=== PATIENT | male | born 1950 | race Caucasian/White ===

== ENCOUNTER 2024-11-19 06:57 | Outpatient (REF) | payer MEDICARE, SELFPAY ==
--- OUTSIDE RECORDS SUMMARY | 2024-11-19 07:00 | XMS_ITS | Encounter Summary ---
Author Organization [facility] Address [address] [place] [address] Care Team Providers Care Linux Admin Engineer Name Role Phone Physician, Pcp Unknown Primary Care Provider Alana vailable Encounter Details Date Type Department Care Team (Late st Contact Info) Description 03/14/2024 Lab Requisition [facility] - Main Lab [address] [place] [address] Brady Ramon MD [address] [facility] [address] [place] [phone] Personal history of malignant neoplasm of bladder Social History Tobacco Use Types Packs/Day Years Used Date Smoking Tobacco: Never Assessed Sex and Gender Information Value Date Recorded Sex Assigned at Not on file Legal Sex Male 1:50 PM EST Gender Identity Not on file Sexual Orientation Not on file documented as of this encounter Plan of Treatment Not on file documented as of this encounter Procedures Procedure Name Priority Date/Time Associated Diagnosis Comments AP OUTSIDE CONSULT Routine 03/07/2024 12 :00 AM EST Personal history of malignant neoplasm of bladder documented in this encounter Results * Anatomic pathology outside consult (03/07/2024 12:00 AM EST) Final Diagnosis A. Urine, Cystoscopic, ([id number]): -NEGATIVE FOR HIGH-GRADE UROTHELIAL CARCINOMA. Results of UroVysion fluorescence in situ hybridization (FISH) testing: CEP3: Normal CEP7: Normal CEP17: Normal LSI 9p21: Normal Interpretation: Normal profile Controls stained appropriately. Note: The results are intended as a screening device and should be interpreted in association with other clinical and pathological findings. 03/27/2024 9:21 AM EST [facility] Clinical Information History of bladder neoplasm (malignant) Z85.51 Urine Cytology/FISH (now) 03/27/2024 9:21 AM [facility] Gross Description A. Cystoscopic, ([id number]): Received one ThinPrep slide for cytology and one ThinPrep slide for UroVysion FISH 03/27/2024 9:21 AM [facility] Disclaimer Unless otherwise specified, all tissue is 10% NB formalin fixed and paraffin embedded. Technical pathology services provided by [facility] at [address] [facility] [address] [place] [address] (CLIA #[id number]/Ninfa Tolbert MD, Accounting Policy Consultant) 03/27/2024 9:21 AM [facility] Tissue Cystoscopy / Unknown 03/07/2024 03/14/2024 2:05 PM EST us Brady Ramon MD LAB PATHOLOGY ORDERABLES Final Result [facility] [address] [place] [address], documented in this encounter Visit Diagnoses Diagnosis Personal history of malignant neoplasm of bladder documented in this encounter Care Teams Linux Admin Engineer Relationship Specialty Start Date End Date Physician, Pcp Unknown PCP - General 03/14/24 documented as of this encounter
--- OUTSIDE RECORDS SUMMARY | 2024-11-19 07:00 | XMS_ITS | Clinical Summary ---
Author Organization [facility] Address [address] [facility] [address] [place] [address] Phone Care Team Providers Care Launch Check Out Name Role Phone Rosario Huynh MD Primary Care Provider [phone] Allergies No known active allergies Medications omeprazole (PriLOSEC) [address] capsule Take 20 mg by mouth 1 (one) time each day Do not crush or chew. Active metoprolol tartrate (LOPRESSOR) 50 MG tablet Take 50 mg by mouth in the morning and 50 mg in the evening. Active atorvastatin (LIPITOR) 20 MG tablet Take 20 mg by mouth 1 (one) time each day Active metFORMIN (GLUCOPHAGE) 500 MG tablet Take 500 mg by mouth in the morning and 500 mg in the evening. Take with meals. Active tamsulosin (Flomax) 0.4 MG 24 hr capsule Take 0.4 mg by mouth 1 (one) time each day Active finasteride (PROSCAR) 5 MG tablet Take 5 mg by mouth 1 (one) time each day Do not crush, chew, or split. Active Multiple Vitamin (multivitamin) capsule Take 1 capsule by mouth 1 (one) time each day Active NIFEdipine XL (Procardia XL) 30 MG 24 hr tablet Take 2 tablets (60 mg total) by mouth 1 (one) time each day Do not crush, chew, or split. 60 tablet 11 07/24/2023 Active Xarelto 20 MG tablet 10/12/2023 Active Active Problems Problem Noted Date Diagnosed Date Chronic systolic heart failure 09/30/2024 Gastroesophageal reflux disease 09/30/2024 Hypercoagulability state 09/30/2024 Long-term current use of anticoagulant Obesity 09/30/2024 Obstructive sleep apnea syndrome 09/30/2024 Obstructive sleep apnea syndrome 09/30/2024 Pulmonary hypertension 09/30/2024 Stage 3b chronic kidney disease 09/05/2023 Status post nephrectomy 09/05/2023 Type 2 diabetes mellitus wit h diabetic chronic kidney disease 09/05/2023 Essential (primary) hypertension 07/20/2023 Diabetes mellitus 07/20/2023 Varicose veins of lower extremity 10/13/2020 Shortness of breath 10/13/2020 Atrial fibrillation 10/23/2017 Overview (09/30/2024): diagnosed July 2015 Hyperlipidemia 10/23/2017 Encounters Date Type Department Care Team Description 09/30/2024 1:00 PM EDT Office Visit [facility] [address] [place] [address] Balbir Pruitt MD Stage 3b chronic kidney disease (HCC) (Primary Dx); Type 2 diabetes mellitus with diabetic chronic kidney disease (HCC) 09/23/2024 Orders Only [facility] [address] [place] [address] Balbir Pruitt MD from Last 3 Months Immunizations Immunization Administration Dates Next Due Influenza Split High Dose Preservative Free IM 0 10/25/2018 Influenza, Trivalent, Adjuvanted 11/16/2015 Pfizer SARS-COV-2 12/01/2020 Family History Relation Status Comments Father Mother Social History Tobacco Use Types Packs/Day Years Used Date Smoking Tobacco: Never Smokeless Tobacco: Never Tobacco Cessation:Counseling Given: Not Answered Alcohol Use Standard Drinks/Week Comments Not Currently 0 (1 standard drink = 0.6 oz pur e alcohol) Sex and Gender Information Value Date Recorded Sex Assigned at Not on file Legal Sex Male 2:10 PM EST Gender Identity Not on file Sexual Orientation Not on file Last Filed Vital Signs Vital Sign Reading Time Taken Comments Blood Pressure 142/72 09/30/2024 1:14 PM EDT Pulse 90 09/30/2024 1:14 PM EDT Temperature - - Respiratory Rate - - Oxygen Saturation 94% 09/30/2024 1:14 PM EDT Inhaled Oxygen Concentration - - Weight 103 kg (226 lb 3.2 oz) 09/30/2024 1:14 PM EDT Height - - Body Mass Index - - Plan of Treatment Upcoming Encounters Date Type Department Care Team (Late st Contact Info) Description 04/14/2025 2:00 PM EST Office [facility] [address] [place] [address] Balbir Pruitt MD [address] [facility] [address] [place] [address] Health Maintenance Due Date Last Done Comments Pneumococcal Vaccine: 50+ Years (1 of 2 - PCV) 09/07/1969 Diabetes: Hemoglobin A1C 07/20/2023 Diabetes: Ophthalmology Exam 07/20/2023 Diabetes: Pedal Pulse Checked 07/20/2023 Diabetes: Sensory Foot Exam 07/20/2023 Diabetes: Visual Foot Exam 07/20/2023 Influenza Vaccine (#1) 2024 9, 11/16/2015 Hepatitis B Vaccine Aged Out No longe r eligible based on patient's age to complete this topic Procedures Procedure Name Priority Date/Time Associated Diagnosis Comments PTH, INTACT Routine 09/23/2024 1:42 PM EDT PROTEIN,TOTAL,URINE Routine 09/23/2024 1 :42 PM EDT URINE CULTURE Routine 09/23/2024 1:42 PM EDT MAGNESIUM Routine 09/23/2024 1:42 PM EDT VITAMIN D 25 HYDROXY Routine 09/23/2024 1:42 PM EDT URINE ALBUMIN / CREATININE RATIO Routine 09/23/2024 1:42 PM EDT CBC Routine 09/23/2024 1:42 PM EDT RENAL FUNCTION PANEL Routine 09/23/2024 1:42 PM EDT URINALYSIS WITH MICROSCOPIC Routine 09/23/2024 1:42 PM EDT RESULT Routine 09/23/2024 1:42 PM EDT MICROSCOPIC EXAMINATION - DO NOT USE Routine 09/23/2024 1:42 PM EDT from Last 3 Months Results * Result (09/23/2024 1:42 PM EDT) Result Comment [facility] Comment: Culture shows less than 10,000 colony forming units of bacteria per milliliter of urine. This colony count is not generally considered to be clinically significant. 09/23/2024 1:42 PM EDT 09/23/2024 Balbir Pruitt MD LAB MICROBIOLOGY - GENERAL OR DERABLES Final Result [employer] [employer] [facility] [address] [place] [address] * Protein, Total, Urine (09/23/2024 1:42 PM EDT) Pathologist [facility] Protein, Ur 140.5 Not Estab. mg/dL [facility] 09/23/2024 1:42 PM EDT 09/23/2024 Balbir Pruitt MD LAB URINE ORDERABLES Final Re sult [facility] [address] [place] [address] * (ABNORMAL) Microscopic Examination (09/23/2024 1:42 PM EDT) WBC, Urine None seen 0 - 5 /hpf [facility] RBC, Urine None seen 0 - 2 /hpf [facility] Squamous Epithelial, Urine 0-10 0 - 10 /hpf [facility] Casts Present(A) None seen /lpf [facility] Cast Type Hyaline casts N/A [facility] Bacteria, Urine None seen None seen/Few [facility] 09/23/2024 1:42 PM EDT 09/23/2024 Balbir Pruitt MD LAB MICROBIOLOGY - GENERAL OR DERABLES Final Result Performing Organization Address City/[facility]/ZIP Co de Phone Number [facility] [address] [place] [address] * (ABNORMAL) Urine Albumin / Creatinine Ratio (09/23/2024 1:42 PM EDT) Creatinine, Ur 169.0 Not Estab. mg/dL [facility] Albumin, Urine 869.2 Not Estab. ug/mL [facility] Comment: Results confirmed on dilution. Albumin/Creatin ine Ratio 514(H) 0 - 29 mg/g creat [facility] Comment: Normal: 0 - 29 Moderately increased: 30 - 300 Severely increased: >300 09/23/2024 1:42 PM EDT 09/23/2024 Balbir Pruitt MD LAB URINE ORDERABLES Final Re sult [facility] [place] [address] [place] [address] * Vitamin D 25 Hydroxy (09/23/2024 1:42 PM EDT) Vitamin D, 25-OH, Total 36.0 30.0 - 100.0 ng/mL [facility] Comment: Vitamin D deficiency has been defined by the [place] of Medicine and an Endocrine Society practice guideline as a level of serum 25-OH vitamin D less than 20 ng/mL (1,2). The Endocrine Society went on to further define vitamin D insufficiency as a level between 21 and 29 ng/mL (2). 1. IOM ([place] of Medicine). 2010. Dietary reference intakes for calcium and D. [place]: The National Academies Press. 2. Timothy MF, Brynn MCDANIEL, Hattie HERNANDES, et al. Evaluation, treatment, and prevention of vitamin D deficiency: an Endocrine Society clinical practice guideline. JCEM. 2010; 96(7):1911-30. 09/23/2024 1:42 PM EDT 09/23/2024 Comment:UC us Balbir Pruitt MD LAB BLOOD ORDERABLES Final Re sult [facility] [address] [place] [address] * (ABNORMAL) Urinalysis with microscopic (09/23/2024 1:42 PM EDT) Specific [place], Urine 1.020 1.005 - 1.030 [facility] pH Urine 5.5 5.0 - 7.5 [facility] Color, Urine Yellow Yellow [facility] Appearance Urine Clear Clear [facility] [place] WBC Esterase Urine Negative Negative [facility] Protein, Ur 3+(A) Negative/Tra ce [facility] Glucose, Ur Trace(A) Negative [facility] Ketones, Urine Negative Negative [facility] Blood Urine Negative Negative [facility] [phone] Bilirubin Urine Negative Negative [facility] Urobilinogen Urine 0.2 0.2 - 1.0 mg/dL [facility] Nitrite, Urine Negative Negative [facility] Microscopic Examination See below: [facility] Comment:Microscopic was jadyn cated and was performed. 09/23/2024 1:42 PM EDT 09/23/2024 Balbir Pruitt MD LAB URINE ORDERABLES Final Re sult [facility] [address] [place] [address] * CBC (09/23/2024 1:42 PM EDT) WBC 8.7 3.4 - 10.8 x10E3/uL [facility] RBC 4.60 4.14 - 5.80 x10E6/uL [facility] Hemoglobin 14.2 13.0 - 17.7 g/dL [facility] Hematocrit 42.5 37.5 - 51.0 % [facility] MCV 92 79 - 97 fL [facility] MCH 30.9 26.6 - 33.0 pg [facility] MCHC 33.4 31.5 - 35.7 g/dL [facility] RDW 13.5 11.6 - 15.4 % [facility] Platelets 384 150 - 450 x10E3/uL [facility] 09/23/2024 1:42 PM EDT 09/23/2024 Balbir Pruitt MD LAB BLOOD ORDERABLES Final Re sult [facility] [address] [place] [address] * Urine Culture (09/23/2024 1:42 PM EDT) Culture Result, Urine Final report [facility] 09/23/2024 1:42 PM EDT 09/23/2024 Comment:[place] Balbir Pruitt MD LAB URINE ORDERABLES Final Re sult Performing Organization Address City/[facility]/ZIP Co de Phone Number [facility] [address] [place] [address] * PTH, Intact (09/23/2024 1:42 PM EDT) PTH 25 15 - 65 pg/mL [facility] 09/23/2024 1:42 PM EDT 09/23/2024 Balbir Pruitt MD LAB BLOOD ORDERABLES Final Re sult Performing Organization Address City/[facility]/ZIP Co de Phone Number [facility] [address] [place] [address] * Magnesium (09/23/2024 1:42 PM EDT) Magnesium 1.7 1.6 - 2.3 mg/dL [facility] 09/23/2024 1:42 PM EDT 09/23/2024 Comment: Balbir Pruitt MD LAB BLOOD ORDERABLES Final Re sult Performing Organization Address City/[facility]/ZIP Co de Phone Number [facility] [address] [place] [address] * (ABNORMAL) Renal Function Panel (09/23/2024 1:42 PM EDT) Pathologist [facility] Glucose 171(H) 70 - 99 mg/dL [facility] BUN 29(H) 8 - 27 mg/dL [facility] Creatinine 1.65(H) 0.76 - 1.27 mg/dL [facility] eGFR CKD-EPI CR 2020 43(L) >59 mL/min/1.7 3 [facility] BUN/Creatinine Ratio 18 10 - 24 [facility] Sodium 136 134 - 144 mmol/L [facility] Potassium 4.7 3.5 - 5.2 mmol/L [facility] Chloride 98 96 - 106 mmol/L [facility] Bicarbonate (CO2) 16(L) 20 - 29 mmol/L [facility] Phosphorus 3.3 2.8 - 4.1 mg/dL [facility] Albumin 4.8 3.8 - 4.8 g/dL [facility] Calcium 10.6(H) 8.6 - 10.2 mg/dL [facility] Comment:Verified by repeat analysis 09/23/2024 1:42 PM EDT 09/23/2024 Comment: us Balbir Pruitt MD LAB BLOOD ORDERABLES Final Re sult [facility] [address] [place] [address] from Last 3 Months Insurance Medicare [facility] Medicare [facility] Medicare [facility] Care Teams Launch Check Out Relationship Specialty Start Date End Date Rosario Huynh MD [address] [place] [address] PCP - General Internal Medicine 07/17/23
--- OUTSIDE RECORDS SUMMARY | 2024-11-19 07:00 | XMS_ITS | Encounter Summary ---
Author Organization [facility] Address [address] [place] [address] Care Team Providers Care Chief Business Development Officer Name Role Phone Physician, Pcp Unknown Primary Care Provider Alana vailable Encounter Details Date Type Department Care Team (Late st Contact Info) Description 11/11/2024 Lab Requisition [facility] - Main Lab [address] [place] [address] Brady Ramon MD [address] [place] [phone] Personal history of malignant neoplasm of bladder Social History Tobacco Use Types Packs/Day Years Used Date Smoking Tobacco: Never Assessed Sex and Gender Information Value Date Recorded Sex Assigned at Not on file Legal Sex Male 1:50 PM EST Gender Identity Not on file Sexual Orientation Not on file documented as of this encounter Plan of Treatment Pending Results Name Type Priority Associated Diagnoses Date /Time Non-gynecologic cytology Pathology and Cytology Routine Personal history of malignant neoplasm of bladder 10/31/2024 12:00 AM EDT documented as of this encounter Visit Diagnoses Diagnosis Personal history of malignant neoplasm of bladder documented in this encounter Care Teams Chief Business Development Officer Relationship Specialty Start Date End Date Physician, Pcp Unknown PCP - General 03/14/24 documented as of this encounter
--- OUTSIDE RECORDS SUMMARY | 2024-11-19 07:00 | XMS_ITS | Encounter Summary ---
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 Cystoscopic Urine, ([id number]): -NEGATIVE FOR HIGH GRADE UROTHELIAL CARCINOMA Results of UroVysion fluorescence in situ hybridization (FISH) testing: CEP3: Normal CEP7: Normal CEP17: Normal LSI 9p21: Normal Interpretation: Normal profile Controls stained appropriately. Note: The results are intended as a screening device and should be interpreted in association with other clinical and pathological findings. 07/16/2024 11:24 AM EDT [facility] Clinical Information History of bladder neoplasm (malignant) Z85.51 Malignant neoplasm of left ureter C66.2 Urine Cytology/FISH (now) 07/16/2024 11:24 AM EDT [facility] Gross Description A. Cystoscopic, ([id number]) Urine: Received one ThinPrep slide for cytology and one ThinPrep slide for UroVysion FISH 07/16/2024 11:24 AM EDT [facility] Disclaimer Unless otherwise specified, all tissue is 10% NB formalin fixed and paraffin embedded. 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
--- OUTSIDE RECORDS SUMMARY | 2024-11-19 07:00 | XMS_ITS | Clinical Summary ---
Author Organization 299 [facility] Address [address] [place] [address] Phone Care Team Providers Care Bill Sorter Name Role Phone Physician, Pcp Unknown Primary Care Provider Alana vailable Encounters Date Type Department Care Team Description 11/11/[address] [facility] - Main Lab [address] [facility] [place] [address] Brady Ramon MD Personal history of malignant neoplasm of bladder from Last 3 Months Social History Tobacco Use Types Packs/Day Years Used Date Smoking Tobacco: Never Assessed Sex and Gender Information Value Date Recorded Sex Assigned at Not on file Legal Sex Male 1:50 PM EST Gender Identity Not on file Sexual Orientation Not on file Plan of Treatment Health Maintenance Due Date Last Done Comments DTaP,Tdap,and Td Vaccines (1 - Tdap) 09[birth year]07/1969 Pneumococcal Vaccine: 50+ Ye ars (1 of 1 - PCV) 1998 Zoster Vaccines (1 of 2) 1998 RSV Immunization Adult Patie nts (1 - 1-dose 75+ series) 09/07/2023 Depression Screening 02/14/2024 Cholesterol Screening (Lipid Panel) 03/14/2024 Falls Risk Assessment 03/14/2024 Hepatitis C Screening 03/14/2024 Medicare Annual Wellness Visit 03/14/2024 Social Influencers of Health Screening 03/14/2024 COVID-19 Vaccine ( - 2023-2 5 season) 2024 Influenza Vaccine (#1) 2024 HIB Vaccines Aged Out No longer eligi ble based on patient's age to complete this topic HPV Vaccines Aged Out No longer eligi ble based on patient's age to complete this topic Hepatitis A Vaccines Aged Out No long er eligible based on patient's age to complete this topic Hepatitis B Vaccines Aged Out No long er eligible based on patient's age to complete this topic IPV Vaccines Aged Out No longer eligi ble based on patient's age to complete this topic MMR Vaccines Aged Out No longer eligi ble based on patient's age to complete this topic Meningococcal ACWY Vaccine Aged Out N o longer eligible based on patient's age to complete this topic Meningococcal B Vaccine Aged Out No l onger eligible based on patient's age to complete this topic RSV Immunization Patients Un august 20 months Aged Out No longer eligible b ased on patient's age to complete this topic Varicella Vaccines Aged Out No longer eligible based on patient's age to complete this topic Insurance MEDICARE [facility] Care Teams Bill Sorter Relationship Specialty Start Date End Date Physician, Pcp Unknown PCP - General 03/14/24
--- OUTSIDE RECORDS SUMMARY | 2024-11-19 07:00 | XMS_ITS | Clinical Summary ---
Author Organization [facility] Address [address] [place] [address] Care Team Providers Care Bath House Attendant Name Role Phone System, Provider Not In Primary Care Provider Un available Allergies No known active allergies Medications rivaroxaban (XARELTO) 20 MG tablet Take 25 mg by mouth every evening with dinner. Take with meals. Active metFORMIN (GLUCOPHAGE) 500 MG tablet Take 500 mg by mouth every morning with breakfast. Active OMEprazole (PriLOSEC) 20 MG capsule Take 20 mg by mouth every morning before breakfast. Active lisinopril-hydr ochlorothiazide (PRINZIDE,ZESTO RETIC) 20-25 MG per tablet Take 1 tablet by mouth daily. Active atorvastatin (LIPITOR) 40 MG tablet Take 40 mg by mouth daily. Active Social History Tobacco Use Types Packs/Day Years Used Date Smoking Tobacco: Former Smokeless Tobacco: Never Alcohol Use Standard Drinks/Week Comments Yes 0 (1 standard drink = 0.6 oz pur e alcohol) Sex and Gender Information Value Date Recorded Sex Assigned at Not on file Legal Sex Male 4:11 AM EST Gender Identity Not on file Sexual Orientation Not on file Last Filed Vital Signs Vital Sign Reading Time Taken Comments Blood Pressure 127/68 01/01/2017 6:46 AM EST Pulse 87 01/01/2017 6:46 AM EST Temperature 37.4 C (99.3 F) 01/01/2017 4:18 AM EST Respiratory Rate 20 01/01/2017 4:18 AM EST Oxygen Saturation 97% 01/01/2017 6:46 AM EST Inhaled Oxygen Concentration - - Weight - - Height - - Body Mass Index - - Plan of Treatment Health Maintenance Due Date Last Done Comments Advance Care Planning 1950 Hepatitis C Virus Screening 1950 DTaP/Tdap/Td Vaccines (1 - Tdap) 09/07/1969 Pneumococcal Vaccines 50+ (1 of 1 - PCV) 1998 Zoster (Shingles) Vaccine (1 of 2) 1998 RSV Vaccine 60 years and old er and Patients (1 - 1-dose 75+ series) 09/07/2023 Influenza Vaccine 09/13/2024 COVID-19 Vaccine (1 - 2023-2 5 season) 2024 Hepatitis B Vaccines Aged Out No long er eligible based on patient's age to complete this topic Insurance MEDICARE PART A & [facility] Care Teams Bath House Attendant Relationship Specialty Start Date End Date System, Provider Not In PCP - General 01/01/17
--- OUTSIDE RECORDS SUMMARY | 2024-11-19 07:00 | XMS_ITS | Encounter Summary ---
Author Organization [facility] Address [address] [place] [address] Phone Care Team Providers Care Supervisor [employer] Name Role Phone Harshil Ellison MD Primary Care Provider [phone] Rosario Huynh MD Primary Care Provider [phone] Tor Wooten MD, MPH Unavailable [phone] Encounter Details Date Type Department Care Team (Late st Contact Info) Description 10/13/2020 Procedure Pass Echo Lab [address] [place], [place] [id number] Social History Tobacco Use Types Packs/Day Years Used Date Smoking Tobacco: Never Assessed Sex and Gender Information Value Date Recorded Sex Assigned at Male 12/01/2022 12:01 PM EDT Legal Sex Male 10:37 PM EDT Gender Identity Male 12/01/2022 12:01 PM EDT Sexual Orientation Straight 12/01/2022 12 :01 PM EDT documented as of this encounter Plan of Treatment Upcoming Encounters Date Type Department Care Team (Late st Contact Info) Description 01/29/2025 9:00 AM EST Office Visit [facility] [address] [place] [address] 3rd Floor, [address] [place], [place] [id number] Candida Crowell, SCARLET 22 [facility], [address] [address] documented as of this encounter Visit Diagnoses Not on filedocumented in this encounter Care Teams Supervisor [employer] Relationship Specialty Start Date End Date Harshil Ellison MD [address] [facility] [address] [place] [address] PCP - General 12/01/16 03/16/21 Rosario Huynh MD [address] [facility] [address] [place] [address] [email or web address] PCP - General Internal Medicine 03/17/21 Tor Wooten MD, MPH [address] [place] [phone] [email or web address] 12/01/22 documented as of this encounter Additional Source Comments The information contained in this document represents components of the legal health record. It is not the complete legal health record.[facility]
--- OUTSIDE RECORDS SUMMARY | 2024-11-19 07:00 | XMS_ITS | Clinical Summary ---
Author Organization [facility] Address [address] [place] [phone] Phone Care Team Providers Care Cemetery Laborer Name Role Phone Rosario Huynh MD Primary Care Provider [phone] Tor Wooten MD, MPH Unavailable [phone] Allergies No known active allergies Medications metFORMIN (GLUCOPHAGE) 500 MG tablet Take 4 tablets by mouth daily. Active omeprazole (PRILOSEC) 20 MG capsule Take 1 capsule by mouth daily. Active atorvastatin (LIPITOR) 40 MG tablet Take 20 mg by mouth 3 (three) times a week. 20mg mon 20mg wed 20mg fri Active sqzsrhxi-kfi-ew rrous gluconate (CENTRUM WITH IRON) 9 mg iron/15 mL Liqd Take 15 mL by mouth daily. Active tamsulosin (FLOMAX) 0.4 mg Cap Take 0.4 mg by mouth daily. Active XARELTO 20 mg Tab TAKE 1 TABLET(20 MG) BY MOUTH DAILY WITH FOOD 90 tablet 3 04/04/2024 Active metoprolol succinate (TOPROL-XL) 50 MG 24 hr tabletIndicatio ns:Medication refill TAKE 2 TABLETS(100 MG) BY MOUTH DAILY 180 tablet 3 07/01/2024 Active NIFEdipine (ADALAT CC) 60 MG 24 hr tabletIndicatio ns:Medication refill Take 1 tablet (60 mg total) by mouth daily. 90 tablet 3 07/03/2024 Active furosemide (LASIX) 20 MG tabletIndicatio ns:Medication refill Take 1 tablet (20 mg total) by mouth daily. 90 tablet 3 07/09/2024 Active Active Problems Problem Noted Date Diagnosed Date Shortness of breath 10/13/2020 Assessment & Plan (01/30/2024 12:19 PM EST): Shortness of breath has resolved. Assessment & Plan (01/04/2021 4:53 PM EST): Recent nuclear stress test normal. Echocardiogram shows normal EF, trace to mild valvular disease. Monitor showed adequate rate control average heart rate in the 80s. Suspect patient's dyspnea multifactorial with untreated sleep apnea as he has not been wearing his CPAP, lack of exercise/deconditioning. He is following up with Dr. Kilpatrick in January in regards to his sleep apnea. He is going to try to increase his physical activity. I do not see a clear cause from a cardiac standpoint. Assessment & Plan (12/04/2020 2:35 PM EDT): Recent nuclear stress test normal. Echocardiogram shows normal EF, trace to mild valvular disease. Monitor showed adequate rate control average heart rate in the 80s. Suspect patient's dyspnea multifactorial with untreated sleep apnea as he has not been wearing his CPAP, lack of exercise/deconditioning. He is following up with Dr. Kilpatrick in January in regards to his sleep apnea. He is going to try to increase his physical activity. I do not see a clear cause from a cardiac standpoint. Assessment & Plan (10/13/2020 10:14 AM EDT): Inadequately controlled at this time we are going to increase lisinopril to 40 mg daily and order him separate hydrochlorthiazide 25 mg a day Varicose veins of bilateral lower extremities with other complications 10/13/2020 Assessment & Plan (08/24/2021 3:36 PM EDT): Bilateral lower extremity edema sounds like it is related to his insufficiency versus amlodipine as his edema resolves within an hour of elevation of his legs. He could try wearing compression stockings to help improve the edema overall but he states the edema does not bother him. Assessment & Plan (07/21/2021 3:10 PM EDT): He does have 1 to-2 BLE and the swelling resolves in the morning. He does not wear compression stockings. 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 He states he was never told that he had venous insufficiency. If his swelling continues then we will consider repeating a venous duplex study. He was encouraged to wear compression stockings. We will see him in 4 weeks for follow-up blood pressure check and medication tolerance. Assessment & Plan (01/04/2021 4:54 PM EST): No edema on exam today. Patient denies any lower extremity edema or bothersome varicose veins at this point. 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 We discussed compression stockings, patient declined at last visit. Continue to monitor. Assessment & Plan (12/04/2020 2:36 PM EDT): No edema on exam today. Patient denies any lower extremity edema or bothersome varicose veins at this point. 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 Continue to monitor. We discussed compression stockings, patient declined at this time. Atrial fibrillation 10/23/2017 Overview (10/23/2017): diagnosed July 2015 Assessment & Plan (07/30/2024 10:58 AM EDT): Irregularly irregular on exam today rate controlled. He is asymptomatic in regards to his A-fib. No bleeding concerns on Xarelto. Patient will continue on metoprolol succinate 100 mg daily at night and Xarelto 20 mg daily. No recent labs on file have requested this from PCP. Assessment & Plan (01/30/2024 12:19 PM EST): Continues to be in a permanent atrial fibrillation rate controlled on metoprolol 5 mg daily. He does report some fatigue and is likely metoprolol is causing this so I am going to have him start taking metoprolol at night to see if this will help with his daytime sleepiness. He is on Xarelto 20 mg daily for the anticoagulation which she will remain on without change. Assessment & Plan (05/30/2023 2:21 PM EDT): Has a history for atrial fibrillation but he is rate controlled on metoprolol 100 mg daily and is on Xarelto 20 mg daily for anticoagulation. He will remain on his medication without change. Assessment & Plan (10/19/2022 1:33 PM EDT): Controlled afib on metoprolol 50mg daily and is anticoagulated on xarelto m20mg daily. Continue meds without change. Assessment & Plan (07/21/2021 3:08 PM EDT): He is rate controlled on metoprolol 50 Assessment & Plan (02/09/2021 1:44 PM EST): He is rate controlled on metoprolol 100 mg daily, he is anticoagulated on Xarelto 20 mg daily remain his medications without change. Assessment & Plan (01/04/2021 4:50 PM EST): Patient has been in atrial fibrillation since 2016 per chart review. Continue adequate anticoagulation with Xarelto 20 mg daily. Patient denies any bleeding issues. Recent monitor shows average heart rate in the 80s and 100% A. fib burden. Patient does not endorse any specific symptoms from his A. fib. Continue rate control with metoprolol 100 mg daily. Assessment & Plan (12/04/2020 2:31 PM EDT): Patient has been in atrial fibrillation since 2016 per chart review. Continue adequate anticoagulation with Xarelto 20 mg daily. Patient denies any bleeding issues. Recent monitor shows average heart rate in the 80s and 100% A. fib burden. Patient does not endorse any specific symptoms from his A. fib. Continue rate control with metoprolol 100 mg daily. Assessment & Plan (10/13/2020 10:13 AM EDT): At this time it is chronic we are leaving him on the Toprol 50 mg daily I am ordering him a 1 week monitor and an echocardiogram I will follow-up with him thereafter. This will allow me to adjust his AV node blocking agent appropriately if 50 mg of metoprolol is controlling his heart rate well we will need to lower the blood pressure with non-AV node blocking agents. Assessment & Plan (10/24/2017 2:58 PM EDT): This is a persistent and likely permanent. He is rate controlled and appropriately anticoagulated presuming normal renal function. His chads score is now 2 so anticoagulation is clearly indicated. Hyperlipidemia 10/23/2017 Assessment & Plan (07/30/2024 10:59 AM EDT): Patient will continue on atorvastatin 20 mg 3 times a week due to side effects. He is following up with PCP for this. I have requested recent labs from PCP. Assessment & Plan (01/30/2024 12:20 PM EST): Followed by PCP. Continue atorvastatin 20 mg 3 times a week due to side effects. LDL goal less than 70 mg/dL. Assessment & Plan (05/30/2023 2:22 PM EDT): Continue atorvastatin 20 mg 3 times weekly. Assessment & Plan (01/04/2021 4:53 PM EST): Patient's most recent lipid panel was quite elevated. He is currently taking atorvastatin 20 mg 3 times a week. He reported that he did not tolerate higher doses due to leg cramping. He is trying to work on diet, exercise, would recommend weight loss and reduction in alcohol intake as well. Patient is going to have a repeat lipid panel drawn in a few months and if this is not better controlled we will need to address try a different statin medication that he can tolerate. Assessment & Plan (12/04/2020 2:34 PM EDT): Recent lipid panel quite elevated. He is currently taking atorvastatin 20 mg 3 times a week. Patient reported that he did not tolerate higher doses with leg cramping. I advised him that diet, exercise, weight loss, reduction in alcohol intake specifically with his high triglycerides, would all have a positive effect on this. He declined increasing his statin medication today. Therefore, if we repeat a lipid panel in a few months and is not better controlled, would recommend trying a different statin that he can tolerate. Assessment & Plan (10/13/2020 10:14 AM EDT): Given the diabetes hemoglobin A1c should be less than 7 and LDL less than 70 mg/dL Assessment & Plan (10/24/2017 2:58 PM EDT): Remains on a statin. I have no recent lipid profiles. Hypertensive disorder 10/23/2017 Assessment & Plan (07/30/2024 10:58 AM EDT): Repeat blood pressure 130/82. Patient educated on HTN pathophysiology, htn medication, importance of low salt DASH heart healthy diet, exercise and home B/P monitoring. Will continue on current medications without change. Assessment & Plan (01/30/2024 12:19 PM EST): Blood pressure is very well-controlled today 116/78. He has not furosemide 20 mg daily, Toprol 100 mg daily, nifedipine 60 mg daily. He is encouraged follow heart healthy diet: Low-sodium and exercise. SBP goal less than 130/80 Assessment & Plan (05/30/2023 2:21 PM EDT): Blood pressure is well-controlled today 132/78. Some of his medications has changed and his lisinopril was discontinued. He was started on nifedipine 60 mg daily, he is also on metoprolol 100 mg daily which she will continue on without change. He is on furosemide 20 mg daily as well. He is encouraged follow healthy diet including low sodium. Assessment & Plan (10/19/2022 1:35 PM EDT): BP remains elevated- initially was 160/98 and was rechecked for 150.80. He is on amlodipine 10 mg daily, lisionpril 40mg daily, and metoprolol 50mg daily. He was asked to start to watch sodium content in food and to start exercising more which he is open to. Continue to monitor BP at home. Assessment & Plan (08/24/2021 3:36 PM EDT): He remains on amlodipine 10 mg daily, lisinopril 40 mg daily, metoprolol 100 mg daily, he was supposed to start on hydrochlorothiazide 25 mg daily however he declined to do this. We were also going to stop his amlodipine due to his ongoing reports of bilateral lower extremity edema. He never did stop taking the amlodipine and continues to take this medication. He tells me that the swelling to his bilateral lower extremities with left worse than right improves with elevation. He does not wear compression stockings for his venous insufficiency. He is encouraged to follow heart healthy diet including low sodium and to continue being active. Assessment & Plan (07/21/2021 3:09 PM EDT): Blood pressures 128/86 here in the office today. He tells me he already watches his sodium intake. He is on amlodipine 10 mg daily, lisinopril 40 mg daily, metoprolol 100 mg daily. We will discontinue his amlodipine today due to bilateral lower extremity edema. Is unclear if the amlodipine is causing edema or from his venous insufficiency. We will trial him back on HCTZ 25 mg daily. He is concerned that this is a high dose of medication therefore I told him to try the 12 and half milligrams daily and see how he tolerates this. If his blood pressures remain elevated then he is to go to 25 mg daily. Assessment & Plan (02/09/2021 1:45 PM EST): Blood pressure appears to be better controlled at home. He is on metoprolol 100 mg daily, lisinopril 40 mg daily, amlodipine 10 mg daily and is tolerating his meds without an issue. He is asked to follow a heart healthy diet including low- sodium. He will continue on his medications without change. We will follow up in 6 months. Assessment & Plan (01/04/2021 4:52 PM EST): Blood pressure continues to be quite elevated, I did check against his home BP cuff today and both readings are elevated. Current regimen amlodipine 10 mg which he is tolerating, lisinopril 40 mg and metoprolol 100 mg, I did discuss increasing his metoprolol today, but patient states previous intolerance with fatigue at higher doses of beta-blockers. I discussed HCTZ as an additional medication option, but patient politely declined at this time as he does not want to urinate more frequently. He also endorsed that due to his anger/stress level in the office today that he believes his blood pressure to be elevated due to these issues. We therefore decided as he did not want to increase metoprolol or add HCTZ, that he will check his blood pressure at home 1 to 2 hours after he takes his morning medications for 2 weeks in addition to limiting his sodium intake and we will speak over the telephone about those numbers to determine if we should add a fourth antihypertensive. Assessment & Plan (12/04/2020 2:33 PM EDT): Blood pressure continues to be elevated. Current regimen consist of lisinopril 40 mg, amlodipine 5 mg which I will increase to 10 mg today, and metoprolol 100 mg daily. If patient has any lower extremity edema with the amlodipine, which he was questioning, I advised him to call the office and we will have to titrate back, but he is willing to try us his blood pressure remains quite elevated. I asked him to start checking at home so we have a better baseline. I asked him to start limiting his sodium and trying to exercise more regularly. He states he used to walk and bike, and has not been doing so the past few months. We also discussed weight loss as he has gained 20 pounds per our scale. Assessment & Plan (10/24/2017 2:59 PM EDT): Mildly elevated today. He is somewhat reluctant to increase his medications so I have asked him to begin to monitor this at home once his machine has been appropriately calibrated. Immunizations Immunization Administration Dates Next Due Influenza High-Dose Quadrivalent Preservative Fr ee IM 10/13/2020,09/30/2019 Influenza High-Dose Trivalent Preservative Free IM 10/25/2018 Influenza Trivalent Adjuvanted Preservative free IM 11/16/2015 Social History Tobacco Use Types Packs/Day Years Used Date Smoking Tobacco: Former Cigarettes Q uit: 2005 Smokeless Tobacco: Never Tobacco Cessation:Counseling Given: Not Answered Comments:15 years ago Alcohol Use Standard Drinks/Week Comments Yes 0 (1 standard drink = 0.6 oz pur e alcohol) [facility] nightly Child or Family Care Answer Date Record ed Do you have problems with on e of the following making it difficult for you to work, study, or receive health care? No 12/08/2022 Education Answer Date Recorded Are you interested in more education? Not on johanny e 06/10/2022 Are you concerned about learning? Not on file 06/10/2022 No 06/10/2022 No 06/10/2022 Food Answer Date Recorded Within the past 6 months we worried whether our food would run out before we got money to buy more. Never True 12/08/2022 Within the past 6 months the food we bought just didn't last and we didn't have enough money to get more. Never True Residential Stability Answer Date Recor ded What is your housing situation today? I have kimmie sing 12/08/2022 How many times have you move d in the past 12 months? Zero (I did not move) 12/08/2022 Paying for Meds Answer Date Recorded Do you have trouble paying for medicines? No 12/08/2022 Paying Utility Bills Answer Date Record ed Do you have trouble paying your heating or elect ricity bill? No 12/08/2022 Transportation Answer Date Recorded Has the lack of transportati on kept you from medical appointments or from getting medications? No 12/08/2022 Digital Access Answer Date Recorded No 07/08/2022 No 07/08/2022 Reliable internet access at home? Not on file 07/08/2022 Device with a working camera? Not on file Sex and Gender Information Value Date Recorded Sex Assigned at Male 12/01/2022 12:01 PM EDT Legal Sex Male 10:37 PM EDT Gender Identity Male 12/01/2022 12:01 PM EDT Sexual Orientation Straight 12/01/2022 12 :01 PM EDT Last Filed Vital Signs Vital Sign Reading Time Taken Comments Blood Pressure 130/82 07/30/2024 10:43 AM EDT Pulse 84 07/30/2024 10:53 AM EDT Temperature 36.9 C (98.5 F) 12/15/2022 4:08 PM EDT Respiratory Rate 18 12/15/2022 4:08 PM EDT Oxygen Saturation 97% 07/30/2024 10:21 AM EDT Inhaled Oxygen Concentration - - Weight 100.2 kg (221 lb) 07/30/2024 10:21 AM EDT Height 167 cm (5' 5.75 ) 07/30/2024 10:21 AM EDT Body Mass Index 35.94 07/30/2024 10:21 AM EDT Plan of Treatment Upcoming Encounters Date Type Department Care Team (Late st Contact Info) Description 01/29/2025 9:00 AM EST Office Visit [facility] [address] 3rd Floor, [address] [place], [place] [id number] Candida Crowell, SCARLET [address] [facility], [address] [place] [id number] Health Maintenance Due Date Last Done Comments Adult Td,Tdap Booster 1948 DEPRESSION SCREENING 1960 HEPATITIS C SCREENING 1966 PNEUMOCOCCAL VACCINES (50+ years) (1 of 1 - PCV) 1998 ZOSTER VACCINES (1 of 2) 1998 CREATININE LEVEL 10/13/2021 10/13/2020 RSV VACCINE (1 - 1-dose 75+ series) 09/07/2023 INFLUENZA VACCINE (#1) 2024 , 10/13/2020, 09/30/2019, Additional history exists COVID-19 VACCINE (3 - season) 2024 12/08/2021, 12/01/2020 BLOOD PRESSURE 01/29/2025 07/30/2024 SMOKING Hx and SMOKELESS TOBACCO SCREENING 07/30/2025 07/30/2024 LIPID PANEL 10/13/2025 10/13/2020, 10/13/2020 HEPATITIS A VACCINES Aged Out No long er eligible based on patient's age to complete this topic HIB VACCINES Aged Out No longer eligi ble based on patient's age to complete this topic MENINGOCOCCAL VACCINES (ACWY) Aged Out No longer eligible based on patient's age to complete this topic MENINGOCOCCAL VACCINES (B) Aged Out N o longer eligible based on patient's age to complete this topic Medical Devices Not on file Procedures Procedure Name Priority Date/Time Associated Diagnosis Comments LIPID PANEL Routine 10/13/2020 10:52 AM EDT Shortness of breath BASIC METABOLIC PANEL Routine 10/13/2020 10:52 AM EDT Shortness of breath from Last 3 Months or Most Recently Relevant to Health Maintenance Results * (ABNORMAL) Lipid panel (10/13/2020 10:52 AM EDT) HDL 33 mg/dL [facility] Comment: Interpretation <40 mg/dL: Low HDL cholesterol (major risk factor for CHD) Greater than or equal to 60 mg/dL: High HDL cholesterol ( negative risk factor for CHD) HDL - cholesterol is affected by a number of factors, e.g. smoking, excerise, hormones, sex and age. CHOLESTEROL 234 0 - 240 mg/dL [facility] TRIGLYCERIDES 415(H) 30 - 160 mg/dL [facility] LDL NOT CALCULATED 50 - 129 mg/dL [facility] Comment: Unable to calculate due to elevated TRIG of greater than 400. A measured LDL will be performed. CARDIAC RISK RATIO 7.1(H) 3.4 - 5.0 [facility] Blood 10/13/2020 10:5 2 AM EDT 10/13/2020 10:58 AM EDT us Harshil Banda DO LAB BLOOD ORDERABLES Final Re sult [facility] [address] [place] [address] * (ABNORMAL) Basic metabolic panel (10/13/2020 10:52 AM EDT) SODIUM 136 133 - 146 mmol/L [facility] CHLORIDE 98 96 - 108 mmol/L [facility] POTASSIUM 4.3 3.3 - 5.1 mmol/L [facility] CO2 28 21 - 35 mmol/L [facility] BUN 20(H) 6 - 19 mg/dL [facility] CREATININE 0.80 0.5 - 1.5 mg/dL [facility] GLUCOSE 270(H) 70 - 99 mg/dL [facility] CALCIUM 10.2 8.4 - 10.3 mg/dL [facility] EGFR 89 >59 mL/min/1.7 3m2 [facility] Comment:Estimated glomerular filtration rate calculated using the CKD-EPI equation. ANION GAP 14 10 - 20 mmol/L [facility] Blood 10/13/2020 10:5 2 AM EDT 10/13/2020 10:58 AM EDT us Harshil Banda DO LAB BLOOD ORDERABLES Final Re sult [facility] [address] [place] [address] from Last 3 Months or Most Recently Relevant to Health Maintenance Insurance MEDICARE PART A & B [employer] SUPPLEMENT MEDICARE PART A & B [employer] MEDEX SUPPLEMENT MEDICARE PART A & B [employer] MEDEX SUPPLEMENT MEDICARE PART A & B [facility] MEDEX SUPPLEMENT MEDICARE PART A & B [employer] MEDEX SUPPLEMENT [employer] MEDEX SUPPLEMENT MEDICARE PART A & B [employer]OSS MEDEX SUPPLEMENT MEDICARE PART A & B [employer] CR[employer] MEDEX SUPPLEMENT MEDICARE PART A & B [employer] SUPPLEMENT Care Teams Cemetery Laborer Relationship Specialty Start Date End Date Rosario Huynh MD [address] [place] [id number] [email or web address] PCP - General Internal Medicine 03/17/21 Tor Wooten MD, MPH [address] [place] [phone] [email or web address] 12/01/22 Additional Source Comments The information contained in this document represents components of the legal health record. It is not the complete legal health record.[facility]
== END 2024-11-19 06:58 | disposition home or self-care (01) ==
LOC: HO.MMNH1L 06:57
PROVIDERS: Visit Provider Physician Assistant Medical
DX: Z13.89 Encounter for screening for other disorder (principal)